=== PATIENT | female | born 1950 | race Caucasian/White ===

== ENCOUNTER → 2017-02-15 | Outpatient (CLI) | payer MEDICARE, OTHER ==
[~2017-02-15] MED LIST: AMBIEN5 M1 PO; CIPRO250 M1 PO; COZAAR25 M1 PO; DILAUDID 2MG TAB2 MG; GLUCOPHAGE; MEDROL 4MG DOSPA4 MG PO; OXYCONTIN10 M1; PEPCID 20MG TAB20 MG PO; ZOCOR10 M1 PO
== END ==
LOC: MAMMO 14:25
DX: Z12.31 Encounter for screening mammogram for malignant neoplasm of breast (principal)
CPT/HCPCS: G0202

== ENCOUNTER → 2017-04-19 | Outpatient (RCR) | payer MEDICARE, OTHER ==
[2015-10-12 16:13] VITALS: BP 150/76
== END | disposition home or self-care (01) ==
LOC: PT
DX: M25.512 Pain in left shoulder (principal); G89.29 Other chronic pain; M25.511 Pain in right shoulder

== ENCOUNTER 2017-05-03 14:00 | Outpatient (RCR) | payer MEDICARE, OTHER ==
[2015-10-12 16:13] VITALS: BP 150/76
== END 2017-05-04 11:28 | disposition home or self-care (01) ==
LOC: PT 14:00
DX: M25.512 Pain in left shoulder (principal); G89.29 Other chronic pain; M25.511 Pain in right shoulder

== ENCOUNTER → 2018-01-24 | Outpatient (CLI) | payer MEDICARE, OTHER ==
[2015-10-12 16:13] VITALS: BP 150/76
[2018-01-24 17:49] LABS: EOS # 0.1 (0.04-0.40); EOS % 1.1 % (1.0-5.0); HEMATOCRIT 40.5 % (37.0-47.0); HEMOGLOBIN 12.7 g/dL (12.5-16.0); LYMPH# 2.2 (1.50-4.00); MEAN CELL VOLUME 86 fl (78-100); MEAN CORPUSCULAR HEMOGLOBIN 27 pg (27-31); MEAN CORPUSCULAR HGB CONC 31 g/dL (33-37); MEAN PLATELET VOLUME 9.4 fl (7.4-10.4); MONO # 1.1 (0.20-0.80); NEU # 5.7 (1.40-6.50); PLATELET COUNT 288 K/mm3 (130-400); RED BLOOD COUNT 4.73 M/mm3 (4.10-5.30); RED CELL DISTRIBUTION WIDTH 14.8 % (11.5-14.5); WHITE BLOOD COUNT 9.1 K/mm3 (4.8-10.8)
[2018-01-24 17:59] LABS: ALBUMIN 3.8 g/dL (3.5-5.0); BUN/CREATININE RATIO 33.4 (6.0-26.0); CALCIUM 10.4 mg/dL (8.4-10.2); TOTAL BILIRUBIN 0.5 mg/dL (0.2-1.3); TOTAL PROTEIN 8.4 g/dL (6.3-8.2)
== END ==
LOC: LAB 16:18 → RAD 16:18
PROVIDERS: Nurse Practitioner Family
DX: R05 Cough (principal); R06.02 Shortness of breath; J98.4 Other disorders of lung; M89.9 Disorder of bone, unspecified

== ENCOUNTER 2018-02-13 16:33 | Emergency (ER) | payer MEDICARE, OTHER ==
[~2018-02-13] VITALS: Wt 104.1 kg
[2018-02-13 17:16] LABS: HEMATOCRIT 43.9 % (37.0-47.0); HEMOGLOBIN 13.3 g/dL (12.5-16.0); MEAN CELL VOLUME 89 fl (78-100); MEAN CORPUSCULAR HEMOGLOBIN 27 pg (27-31); MEAN CORPUSCULAR HGB CONC 30 g/dL (33-37); PLATELET COUNT 288 K/mm3 (130-400); RED BLOOD COUNT 4.94 M/mm3 (4.10-5.30); RED CELL DISTRIBUTION WIDTH 15.9 % (11.5-14.5)
[2018-02-13 17:32] LABS: BUN/CREATININE RATIO 36.3 (6.0-26.0); CALCIUM 9.9 mg/dL (8.4-10.2); POTASSIUM 5.6 mmol/L (3.6-5.0); TOTAL BILIRUBIN 0.8 mg/dL (0.2-1.3); TOTAL PROTEIN 7.7 g/dL (6.3-8.2)
[2018-02-13 17:40] LABS: WHITE BLOOD COUNT 21.1 K/mm3 (4.8-10.8)
[2018-02-13 17:49] LABS: LYMPHOCYTE 9 % (20-51); MONOCYTE 3 % (3-10); NEUTROPHILS 88 % (42-75)
[2018-02-13 17:55] LABS: URINE COLOR YELLOW
[2018-02-13 17:56] LABS: URINE APPEARANCE CLEAR; URINE BILIRUBIN NEGATIVE (NEGATIVE); URINE BLOOD 50 ery/uL (NEGATIVE); URINE KETONE NEGATIVE (NEGATIVE); URINE LEUKOCYTE ESTERASE NEGATIVE (NEGATIVE); URINE NITRATE NEGATIVE (NEGATIVE); URINE PROTEIN(semi-quant) TRACE mg/dL (NEGATIVE); URINE UROBILINOGEN NORMAL (NORMAL)
[2018-02-13 20:30] VITALS: BP 137/84
== END 2018-02-13 20:30 | disposition short-term general hospital (02) ==
LOC: ED 16:33
PROVIDERS: Physician Assistant
DX: A41.9 Sepsis, unspecified organism (principal); J18.9 Pneumonia, unspecified organism; R41.82 Altered mental status, unspecified; K56.7 Ileus, unspecified; I25.10 Atherosclerotic heart disease of native coronary artery without angina pectoris; Z95.5 Presence of coronary angioplasty implant and graft; E78.5 Hyperlipidemia, unspecified; E11.9 Type 2 diabetes mellitus without complications; I10 Essential (primary) hypertension; Z88.2 Allergy status to sulfonamides; Z88.8 Allergy status to other drugs, medicaments and biological substances; Z79.84 Long term (current) use of oral hypoglycemic drugs; K21.9 Gastro-esophageal reflux disease without esophagitis; G47.00 Insomnia, unspecified; F17.200 Nicotine dependence, unspecified, uncomplicated; J45.909 Unspecified asthma, uncomplicated; R40.2132 Coma scale, eyes open, to sound, at arrival to emergency department; R40.2352 Coma scale, best motor response, localizes pain, at arrival to emergency department; R40.2242 Coma scale, best verbal response, confused conversation, at arrival to emergency department
CPT/HCPCS: J1940; J1956; J2310; J7030; Q9967

== ENCOUNTER 2018-05-29 16:36 | Emergency (ER) | payer MEDICARE, OTHER ==
[2018-05-29 17:38] LABS: HEMATOCRIT 37.5 % (37.0-47.0); HEMOGLOBIN 11.3 g/dL (12.5-16.0); MEAN CELL VOLUME 89 fl (78-100); MEAN CORPUSCULAR HEMOGLOBIN 27 pg (27-31); MEAN CORPUSCULAR HGB CONC 30 g/dL (33-37); MEAN PLATELET VOLUME 9.8 fl (7.4-10.4); PLATELET COUNT 333 K/mm3 (130-400); RED CELL DISTRIBUTION WIDTH 15.4 % (11.5-14.5); WHITE BLOOD COUNT 12.1 K/mm3 (4.8-10.8)
[2018-05-29 17:40] LABS: ALBUMIN 3.9 g/dL (3.5-5.0); BUN/CREATININE RATIO 19.5 (6.0-26.0); CALCIUM 9.5 mg/dL (8.4-10.2); POTASSIUM 4.9 mmol/L (3.6-5.0); TOTAL BILIRUBIN 0.6 mg/dL (0.2-1.3); TOTAL PROTEIN 7.7 g/dL (6.3-8.2)
[2018-05-29 17:42] LABS: TROPONIN-I 0.05 ng/mL (0.00-0.06)
[2018-05-29 17:46] LABS: CKMB ISOENZYME 2.6 ng/mL (0.6-3.5)
[2018-05-29 17:54] LABS: LYMPHOCYTE 6 % (20-51); MONOCYTE 9 % (3-10); NEUTROPHILS 85 % (42-75)
[2018-05-29 18:16] LABS: URINE APPEARANCE HAZY; URINE COLOR YELLOW
[2018-05-29 18:17] LABS: URINE BILIRUBIN NEGATIVE (NEGATIVE); URINE BLOOD NEGATIVE (NEGATIVE); URINE GLUCOSE NEGATIVE (NEGATIVE); URINE KETONE NEGATIVE (NEGATIVE); URINE LEUKOCYTE ESTERASE NEGATIVE (NEGATIVE); URINE NITRATE NEGATIVE (NEGATIVE); URINE PROTEIN(semi-quant) TRACE mg/dL (NEGATIVE); URINE UROBILINOGEN NORMAL (NORMAL); URINE WBC 0-1 /hpf (0-3)
[2018-05-29 19:20] VITALS: BP 114/61
== END 2018-05-29 19:04 | disposition short-term general hospital (02) ==
LOC: ED 16:36
PROVIDERS: Nurse Practitioner Family
DX: A41.9 Sepsis, unspecified organism (principal); J18.9 Pneumonia, unspecified organism; R65.20 Severe sepsis without septic shock; N17.9 Acute kidney failure, unspecified; R41.82 Altered mental status, unspecified; R40.2412 Glasgow coma scale score 13-15, at arrival to emergency department; E11.9 Type 2 diabetes mellitus without complications; Z79.84 Long term (current) use of oral hypoglycemic drugs; I10 Essential (primary) hypertension; J45.909 Unspecified asthma, uncomplicated; E78.5 Hyperlipidemia, unspecified; I25.10 Atherosclerotic heart disease of native coronary artery without angina pectoris; Z95.5 Presence of coronary angioplasty implant and graft; Z79.899 Other long term (current) drug therapy; Z88.2 Allergy status to sulfonamides
CPT/HCPCS: J0696; J1956; J2310; J7030